=== PATIENT | male | born 1955 | race Two or more races ===

== ENCOUNTER 2024-06-17 16:42 | Inpatient (IN) | payer OTHER ==
[~2024-06-17] VITALS: Ht 172.7 cm; Wt 157.4 kg
[2024-06-17] MEDS ORDERED: PLAVIX75 MG PO (16:55)
[2024-06-17] MEDS ORDERED: TOPROL XL100 M1 PO (16:55)
[2024-06-17] MEDS ORDERED: LANTUS SOL100 UNIT/1 (16:55)
[2024-06-17] MEDS ORDERED: FARXIGA10 MG PO (16:56)
[2024-06-17] MEDS ORDERED: FINASTERIDE5 MG PO (16:56)
[2024-06-17] MEDS ORDERED: ALDACTONE25 MG PO (16:56)
[2024-06-17] MEDS ORDERED: NIFE60TA3 PO (16:57)
[2024-06-17] MEDS ORDERED: IRBESARTAN300 MG PO (16:57)
[2024-06-17] MEDS ORDERED: JANUMET 50-5001 EACH PO (16:57)
[2024-06-17] MEDS ORDERED: LASIX40 MG PO (16:57)
[2024-06-17] MEDS ORDERED: LOVAZA1 GM PO (16:57)
[2024-06-17] MEDS ORDERED: EZALLOR SPRINKL20 MG PO (16:58)
--- NOTE | 2024-06-17 17:11 | NUR ---
PACIENTE ALERTA Y ORIENTADO X3 QUIEN VERBALIZA QUE SE LLEVA VARIOS SPICER CON FATIGA, RETENCION DE LIQUIDOS, SE OBSERVAN EXTREMIDADES INFERIORES CON EDEMA. SE MONITOREAN S/V, SE LE REALIZA EKG Y SE LE PRESENTA A DR DONOVAN.
[2024-06-17] MEDS ORDERED: FUROsemide 20 MG/2 ML VIAL IV ONE (17:30)
[2024-06-17] MEDS ORDERED: FUROsemide 20 MG/2 ML VIAL ONE (17:38)
--- NOTE | 2024-06-17 18:00 | NUR ---
SE EDUCA A PTE SOBRE [place] MEDICO TAMIA REFIERE ENTENDER, SE KAYLA MUESTRAS DE LABORATORIO UTILIZANDO MEDIDAS ASEPTICAS. SE COLOCA H/L MARCELLA DE EDEMA. SE ADMINISTRA MEDCIAMENTO EL CUAL TOLERA. SE NOTIFICA ESTUDIO DE RX PENDIENTE. PTE REHUSA ABGS.
[2024-06-17 18:09] LABS: HEMATOCRIT 35.6 % (39.0-48.0); HEMOGLOBIN 11.8 g/dL (13-16.00); MEAN CELL VOLUME 81.2 fL (80.0-100.00); MEAN CORPUSCULAR HEMOGLOBIN 26.9 pg (27.00-32.0); MEAN CORPUSCULAR HGB CONC 33.1 g/dl (32.0-36.0); RED BLOOD COUNT 4.38 M/uL (4.00-6.00)
[2024-06-17 18:10] LABS: PLATELET COUNT 114 K/uL (150-450)
[2024-06-17 18:28] LABS: CALCIUM 8.3 mg/dL (8.5-10.1); CREATININE SERUM 1.99 mg/dL (0.70-1.30); GFR 33.69; POTASSIUM 3.89 mEq/L (3.5-5.1)
[2024-06-17] MEDS ORDERED: ACETAMINOPHEN 500 MG GEL..CAP PO PRN (20:15)
[2024-06-17] MEDS ORDERED: NITROGLYCERIN IN 5 % DEXTROSE 250 ML IV SCH (20:16)
[2024-06-17] MEDS ORDERED: IPRATROPIUM BROMIDE 0.5 MG/2.5 ML AMPUL.NEB IH SCH (20:17)
[2024-06-17] MEDS ORDERED: DEXTROSE 50 % IN WATER 0.5 G/ML DISP.SYRIN IV PRN (20:30)
[2024-06-17] MEDS ORDERED: INSULIN LISPRO 1,000 UNIT/10 ML UNITS SUBCUTANEO PRN (20:30)
[2024-06-17] MEDS ORDERED: METOLAZONE 2.5 MG TABLET PO ONE (22:15)
[2024-06-17] MEDS ORDERED: CEFTRIAXONE SODIUM 2,000 MG in 0.9 % SODIUM CHLORIDE 100 ML IV SCH (22:47)
[2024-06-17] MEDS ORDERED: AZITHROMYCIN 500 MG in DEXTROSE 5 % IN WATER 250 ML IV SCH (22:47)
[2024-06-18] MEDS ORDERED: FUROsemide 20 MG/2 ML VIAL IV SCH (01:00)
[2024-06-18 01:51] LABS: D DIMER 1.37 MG/L; INR 1.04; PARTIAL THROMBOPLASTIN TIME 33.5 SECONDS (22.0-34.0); PROTHROMBIN TIME 10.9 SECONDS (9.0-11.5)
[2024-06-18] MEDS ORDERED: CEFTRIAXONE SODIUM 2,000 MG VIAL ONE (02:38)
[2024-06-18] MEDS ORDERED: NITROGLYCERIN IN 5 % DEXTROSE 50 MG/250 ML BOTTLE IV ONE (02:38)
[2024-06-18] MEDS ORDERED: FUROsemide 20 MG/2 ML VIAL ONE ×2 (02:38→08:29)
[2024-06-18] MEDS ORDERED: AZITHROMYCIN 500 MG VIAL IV ONE ×2 (02:38→08:29)
[2024-06-18 04:58] LABS: URINE BILIRRUBIN Negative (NEGATIVE); URINE BLOOD Small; URINE COLOR Yellow; URINE KETONE Negative (NEGATIVE); URINE LEUKOCYTE Negative; URINE NITRATE Negative; URINE UROBILINOGEN 0.2 E.U./dl
[2024-06-18 05:02] LABS: URINE BACTERIA 129.7 uL (0.0-1933); URINE CAST 1.67 uL (0.0-1.40); URINE EPITHELIAL CELLS 8.6 uL (0.0-38.8); URINE WBC 6.1 uL (0.0-23.2)
[2024-06-18 05:17] LABS: URINE GLUCOSE 250 MG/DL (NEGATIVE); URINE PROTEIN 300 (NEGATIVE); URINE RBC 1.9 uL (0.0-20.8)
[2024-06-18 05:18] LABS: URINE APPEARANCE CLEAR
[2024-06-18] MEDS ORDERED: ENOXAPARIN SODIUM 40 MG/0.4 ML SYRINGE SUBCUTANEO ONE (08:29)
[2024-06-18] MEDS ORDERED: CEFTRIAXONE SODIUM 1,000 MG VIAL ONE (08:29)
[2024-06-18] MEDS ORDERED: ENOXAPARIN SODIUM 40 MG/0.4 ML SYRINGE SUBCUTANEO SCH (09:00)
[2024-06-18] MEDS ORDERED: FINASTERIDE 5 MG TABLET PO SCH (09:00)
[2024-06-18] MEDS ORDERED: FARXIGA 10 MG PO SCH (09:00)
[2024-06-18] MEDS ORDERED: SPIRONOLACTONE 25 MG TABLET PO SCH (09:00)
[2024-06-18] MEDS ORDERED: CARVEDILOL 3.125 MG TABLET PO SCH (09:00)
[2024-06-18] MEDS ORDERED: NITROGLYCERIN IN 5 % DEXTROSE 250 ML IV SCH (09:30)
[2024-06-19 06:23] LABS: HEMATOCRIT 34.2 % (39.0-48.0); HEMOGLOBIN 11.5 g/dL (13-16.00); MEAN CELL VOLUME 82.4 fL (80.0-100.00); MEAN CORPUSCULAR HEMOGLOBIN 27.7 pg (27.00-32.0); MEAN CORPUSCULAR HGB CONC 33.6 g/dl (32.0-36.0); PLATELET COUNT 138 K/uL (150-450); RED BLOOD COUNT 4.15 M/uL (4.00-6.00); RED CELL DISTRIBUTION WIDTH 15.5 % (11.5-14.5)
[2024-06-19 06:39] LABS: ALBUMIN 3.3 gm/dL (3.4-5.0); BILIRUBIN TOTAL 0.46 mg/dL (0.3-1.2); CALCIUM 8.7 mg/dL (8.5-10.1); CREATININE SERUM 2.08 mg/dL (0.70-1.30); GFR 32.01; GLOBULINA 3.9 G/DL (2.4-3.5); POTASSIUM 3.72 mEq/L (3.5-5.1); TOTAL PROTEIN 7.2 gm/dL (6.4-8.2)
[2024-06-19] MEDS ORDERED: IPRATROPIUM BROMIDE 0.5 MG/2.5 ML AMPUL.NEB IH ONE ×2 (08:47→16:50)
[2024-06-19] MEDS ORDERED: FUROsemide 20 MG/2 ML VIAL ONE (08:54)
[2024-06-19] MEDS ORDERED: CEFTRIAXONE SODIUM 2,000 MG VIAL ONE (08:55)
[2024-06-19] MEDS ORDERED: ENOXAPARIN SODIUM 40 MG/0.4 ML SYRINGE SUBCUTANEO ONE (08:55)
[2024-06-19] MEDS ORDERED: FUROsemide 20 MG/2 ML VIAL IV SCH (09:00)
[2024-06-19] MEDS ORDERED: DEXAMETHASONE SODIUM PHOSPHATE 4 MG/ML VIAL IV SCH (09:01)
[2024-06-19] MEDS ORDERED: REMDESIVIR 100 MG VIAL IV NR (12:00)
[2024-06-19] MEDS ORDERED: INSULIN LISPRO 1,000 UNIT/10 ML UNITS SUBCUTANEO ONE (17:55)
[2024-06-19] MEDS ORDERED: NITROGLYCERIN IN 5 % DEXTROSE 50 MG/250 ML BOTTLE IV ONE (18:28)
[2024-06-19 20:21] LABS: FERRITIN 303.6 NG/ML (26-388)
[2024-06-19 20:22] LABS: C-REACTIVE PROTEIN 2.57 MG/DL (0.00-0.29)
[2024-06-20 06:58] LABS: ALBUMIN 3.4 gm/dL (3.4-5.0); BILIRUBIN TOTAL 0.41 mg/dL (0.3-1.2); CREATININE SERUM 2.02 mg/dL (0.70-1.30); GFR 33.11; GLOBULINA 3.5 G/DL (2.4-3.5); POTASSIUM 4.27 mEq/L (3.5-5.1); TOTAL PROTEIN 6.9 gm/dL (6.4-8.2)
[2024-06-20] MEDS ORDERED: INSULIN NPH HUM/REG INSULIN HM 1,000 UNIT/10 ML UNITS SUBCUTANEO SCH (08:00)
[2024-06-20] MEDS ORDERED: REMDESIVIR 100 MG VIAL IV SCH (14:00)
[2024-06-21 08:47] LABS: ALBUMIN 3.2 gm/dL (3.4-5.0); BILIRUBIN TOTAL 0.37 mg/dL (0.3-1.2); CALCIUM 8.9 mg/dL (8.5-10.1); CREATININE SERUM 2.03 mg/dL (0.70-1.30); GFR 32.92; GLOBULINA 3.2 G/DL (2.4-3.5); POTASSIUM 4.25 mEq/L (3.5-5.1); TOTAL PROTEIN 6.4 gm/dL (6.4-8.2)
[2024-06-21] MEDS ORDERED: FAMOtidine 20 MG TABLET PO SCH (09:00)
[2024-06-22 09:10] LABS: ALBUMIN 3.1 gm/dL (3.4-5.0); BILIRUBIN TOTAL 0.45 mg/dL (0.3-1.2); CALCIUM 8.8 mg/dL (8.5-10.1); CREATININE SERUM 1.97 mg/dL (0.70-1.30); GFR 34.08; GLOBULINA 3.5 G/DL (2.4-3.5); POTASSIUM 4.01 mEq/L (3.5-5.1); TOTAL PROTEIN 6.6 gm/dL (6.4-8.2)
[2024-06-23] MEDS ORDERED: INSULIN NPH HUM/REG INSULIN HM 1,000 UNIT/10 ML UNITS SUBCUTANEO SCH (08:00)
[2024-06-23 08:57] LABS: ALBUMIN 3.1 gm/dL (3.4-5.0); BILIRUBIN TOTAL 0.55 mg/dL (0.3-1.2); CREATININE SERUM 1.95 mg/dL (0.70-1.30); GFR 34.49; GLOBULINA 3.5 G/DL (2.4-3.5); POTASSIUM 4.18 mEq/L (3.5-5.1); TOTAL PROTEIN 6.6 gm/dL (6.4-8.2)
== END 2024-06-23 17:29 | disposition home or self-care (01) | DRG 291 ==
LOC: ER 16:43 → ICU-2 20:42 → SEC-K 06-19 17:52 → MEDJ 06-19 19:42 → SEC-K 06-19 20:03 → MEDJ 06-20 02:57
PROVIDERS: Emergency Medicine; General Practice; Internal Medicine Endocrinology, Diabetes & Metabolism; Internal Medicine Infectious Disease; ADMIT Internal Medicine; ATTEND Internal Medicine
PROC: BB24ZZZ Computerized Tomography (CT Scan) of Bilateral Lungs (ICD-10-PCS; principal; 2024-06-17)
PROC: B246ZZZ Ultrasonography of Right and Left Heart (ICD-10-PCS; 2024-06-18)
PROC: 4A12X4Z Monitoring of Cardiac Electrical Activity, External Approach (ICD-10-PCS; 2024-06-20)
DX: I13.0 Hypertensive heart and chronic kidney disease with heart failure and stage 1 through stage 4 chronic kidney disease, or unspecified chronic kidney disease (principal); I50.23 Acute on chronic systolic (congestive) heart failure; U07.1 COVID-19; J18.9 Pneumonia, unspecified organism; J90 Pleural effusion, not elsewhere classified; N17.8 Other acute kidney failure; N18.9 Chronic kidney disease, unspecified; E11.22 Type 2 diabetes mellitus with diabetic chronic kidney disease; Z79.4 Long term (current) use of insulin; E11.65 Type 2 diabetes mellitus with hyperglycemia; I50.9 Heart failure, unspecified; E11.21 Type 2 diabetes mellitus with diabetic nephropathy